=== PATIENT | female | born 1995 | race Caucasian/White ===

== ENCOUNTER 2016-06-25 11:02 | Inpatient (IN) | payer OTHER ==
[~2016-06-25] VITALS: Ht 157.5 cm; Wt 83.6 kg
[~2016-06-25 11:02] MED LIST: AMOXICILLIN875 MG PO; LORTAB 5-325 M1 EACH PO; MACROBID100 MG PO; MOTRIN800 MG PO; NAPROSYN375 MG PO; PRILOSEC20 MG PO; ROBAXIN500 MG PO; ULTRAM50 MG PO
[2016-06-25 12:21] LABS: INTERNAL CONTROL VALID? YES
[2016-06-25 12:26] LABS: AMPHETAMINE NEGATIVE (500 ng/mL); BARBITURATES NEGATIVE (200 ng/mL); BENZODIAZEPINES NEGATIVE (150 ng/mL); COCAINE NEGATIVE (150 ng/mL); INTERNAL CONTROLS VALID? YES; METHADONE NEGATIVE (200 ng/mL); METHAMPHETAMINE NEGATIVE (500 ng/mL); OPIATES (MORPHINE) NEGATIVE (100 ng/mL); OXYCODONE NEGATIVE (100 ng/mL); PHENCYCLIDINE NEGATIVE (25 ng/mL); PROPOXYPHENE NEGATIVE (300 ng/mL); THC CANNABINOIDS NEGATIVE (50 ng/mL); TRICYCLIC ANTIDEPRESSANTS NEGATIVE (300 ng/mL)
[2016-06-25] MEDS ORDERED: PROAIR HFA8.5 GM IH (14:29)
[2016-06-25 15:51] LABS: BASOPHIL COUNT 0.1 K/uL (0-0.1); EOSINOPHIL (%) 0.6 % (0-5); EOSINOPHIL COUNT 0.1 K/uL (0-0.3); HEMATOCRIT 43.1 % (36.0-46.0); IMMATURE GRANULOCYTE (%) 0.4 % (0.0-0.7); LYMPHOCYTE COUNT 2.7 K/uL (1.0-2.8); MCH 30.7 PG (29.0-34.0); MCHC 34.8 G/DL (30.0-36.0); MCV 88.1 FL (83-99); MONOCYTE COUNT 0.6 K/uL (0-0.8); NEUTROPHIL (%) 64.1 % (45-76); RBC DIS.WIDTH-SD 38.8 % (39-53); RED BLOOD COUNT 4.89 M/uL (3.80-5.20); WHITE BLOOD COUNT 9.4 K/uL (4.1-10.2)
[2016-06-25 16:02] LABS: CHLORIDE 112 mEq/L (99-109); POTASSIUM 4.3 mEq/L (3.7-5.4); SODIUM 142 mEq/L (136-147)
[2016-06-25 16:05] LABS: GLUCOSE 110 mg/dL (70-99)
[2016-06-25 16:06] LABS: ANION GAP 10 MEQ/L (2-14)
[2016-06-25 16:07] LABS: TOTAL BILIRUBIN 0.5 mg/dL (0.0-1.0)
[2016-06-25 16:08] LABS: ALKALINE PHOSPHATASE 70 IU/L (3-129); SERUM ETHYL ALCOHOL < 10 mg/dL
[2016-06-25 16:09] LABS: GFR ESTIMATE (CALCULATED) > 59 mL/min/
[2016-06-25 16:10] LABS: UREA NITROGEN (BUN) 8 mg/dL (9-23)
[2016-06-25 16:49] LABS: MEAN PLAT.VOLUME 10.2 uM^3 (9.5-12.4); PLATELET COUNT 296 K/uL (156-360)
[2016-06-25 18:05] VITALS: BP 141/67
[2016-06-25 18:11] VITALS: BP 141/67
[2016-06-26 07:59] VITALS: BP 118/55
[2016-06-26 11:41] LABS: QUANTITATIVE HCG < 4.0 MIU/ML
[2016-06-26 15:43] VITALS: BP 101/66
[2016-06-27 07:38] VITALS: BP 124/66
[2016-06-27 15:17] VITALS: BP 129/58
[2016-06-28 07:37] VITALS: BP 114/61
[2016-06-28] MEDS ORDERED: SERTRALINE HCL100 MG PO (10:51)
== END 2016-06-28 14:11 | disposition home or self-care (01) | DRG 881 ==
LOC: EME 11:02 → EDOF 15:21 → 1WEST 15:21
PROVIDERS: Emergency Medicine
DX: F32.9 Major depressive disorder, single episode, unspecified (principal); R45.851 Suicidal ideations; G47.00 Insomnia, unspecified; F41.1 Generalized anxiety disorder
CPT/HCPCS: 80053; 84702; 84703; 85025; 90839; 97150 GO; 99202; 99281; 99285; G0480; Q0169; Q0177

== ENCOUNTER 2016-07-09 18:30 | Emergency (ER) | payer OTHER ==
[~2016-07-09] VITALS: Ht 157.5 cm; Wt 82.1 kg
[~2016-07-09 18:30] MED LIST changes: +PROAIR HFA8.5 GM IH; +SERTRALINE HCL100 MG PO
[2016-07-09 21:57] VITALS: BP 121/83
== END 2016-07-09 21:58 | disposition home or self-care (01) ==
LOC: EME → EDBD 18:30 → EME 18:30
DX: R55 Syncope and collapse (principal); S09.90XA Unspecified injury of head, initial encounter; S06.0X0A Concussion without loss of consciousness, initial encounter; W19.XXXA Unspecified fall, initial encounter; J45.909 Unspecified asthma, uncomplicated
CPT/HCPCS: 70450; 93005; 99281; 99285; J7030

== ENCOUNTER 2016-08-31 07:50 | Emergency (ER) | payer OTHER ==
[~2016-08-31] VITALS: Ht 157.5 cm; Wt 81.5 kg
[2016-08-31 08:21] LABS: HEMATOCRIT 42.5 % (36.0-46.0); MCH 30.5 PG (29.0-34.0); MCHC 34.6 G/DL (30.0-36.0); MCV 88.2 FL (83-99); MEAN PLAT.VOLUME 10.1 uM^3 (9.5-12.4); PLATELET COUNT 385 K/uL (156-360); RBC DIS.WIDTH-CV 12.4 % (11.8-14.6); RBC DIS.WIDTH-SD 40.2 % (39-53); RED BLOOD COUNT 4.82 M/uL (3.80-5.20); WHITE BLOOD COUNT 12.2 K/uL (4.1-10.2)
[2016-08-31 08:31] LABS: CHLORIDE 110 mEq/L (99-109); POTASSIUM 3.7 mEq/L (3.7-5.4); SODIUM 143 mEq/L (136-147)
[2016-08-31 08:34] LABS: GLUCOSE 102 mg/dL (70-99)
[2016-08-31 08:35] LABS: ANION GAP 12 MEQ/L (2-14); TOTAL BILIRUBIN 0.3 mg/dL (0.0-1.0)
[2016-08-31 08:36] LABS: SERUM ETHYL ALCOHOL < 10 mg/dL
[2016-08-31 08:37] LABS: ALKALINE PHOSPHATASE 85 IU/L (3-129); GFR ESTIMATE (CALCULATED) > 59 mL/min/
[2016-08-31 08:38] LABS: UREA NITROGEN (BUN) 10 mg/dL (9-23)
[2016-08-31 09:38] LABS: ADD MIUA? YES; BILIRUBIN NEGATIVE; BLOOD NEGATIVE; COLOR YELLOW ((YELLOW)); GLUCOSE (STRIP) NEGATIVE; KETONES NEGATIVE; LEUKOCYTES MODERATE; NITRITE NEGATIVE; PROTEIN (STRIP) 100; SPECIFIC GRAVITY 1.018 (1.000-1.030); UROBILINOGEN 0.2 MG/DL (0.2-1.0)
[2016-08-31 09:52] LABS: BACTERIA RARE /HPF; EPITHELIAL CELLS 1+ /HPF; MUCUS TRACE /LPF; RED BLOOD CELLS 0-5 /HPF (0-5); UCUL ADDED? NO
[2016-08-31 10:02] LABS: AMPHETAMINE NEGATIVE (500 ng/mL); BARBITURATES NEGATIVE (200 ng/mL); BENZODIAZEPINES NEGATIVE (150 ng/mL); COCAINE NEGATIVE (150 ng/mL); INTERNAL CONTROLS VALID? YES; METHADONE NEGATIVE (200 ng/mL); METHAMPHETAMINE NEGATIVE (500 ng/mL); OPIATES (MORPHINE) NEGATIVE (100 ng/mL); OXYCODONE NEGATIVE (100 ng/mL); PHENCYCLIDINE NEGATIVE (25 ng/mL); PROPOXYPHENE NEGATIVE (300 ng/mL); THC CANNABINOIDS NEGATIVE (50 ng/mL); TRICYCLIC ANTIDEPRESSANTS NEGATIVE (300 ng/mL)
[2016-08-31 10:41] LABS: QUANTITATIVE HCG < 4.0 MIU/ML
[2016-08-31] MEDS ORDERED: ZOFRAN4 MG PO (10:42)
[2016-08-31 11:03] VITALS: BP 110/68
== END 2016-08-31 11:03 | disposition home or self-care (01) ==
LOC: EME 07:50
PROVIDERS: Nurse Practitioner Family
DX: R11.2 Nausea with vomiting, unspecified (principal); J45.909 Unspecified asthma, uncomplicated
CPT/HCPCS: 80053; 81003; 84702; 85027; 99281; 99285; G0480; J2405; J7030

== ENCOUNTER 2017-03-17 03:49 | Emergency (ER) | payer SELFPAY ==
[~2017-03-17] VITALS: Ht 157.5 cm; Wt 84.5 kg
[~2017-03-17 03:49] MED LIST changes: +ZOFRAN4 MG PO
[2017-03-17] MEDS ORDERED: ZOFRAN4 MG PO (04:56)
[2017-03-17] MEDS ORDERED: ROBITUSSIN AC,T10 ML PO (04:56)
[2017-03-17 05:25] VITALS: BP 152/91
[2017-03-17 05:59] LABS: APPEARANCE CLOUDY ((CLEAR)); COLOR YELLOW ((YELLOW)); LEUKOCYTES LARGE; NITRITE NEGATIVE
[2017-03-17 06:00] LABS: BILIRUBIN NEGATIVE; BLOOD NEGATIVE; GLUCOSE (STRIP) NEGATIVE; KETONES NEGATIVE; PROTEIN (STRIP) NEGATIVE; UROBILINOGEN 0.2 MG/DL (0.2-1.0)
[2017-03-17 06:23] LABS: BACTERIA 2+ /HPF; EPITHELIAL CELLS 2+ /HPF; HYALINE CASTS 0-5 /LPF; MUCUS 2+ /LPF; RED BLOOD CELLS 0-5 /HPF (0-5); UCUL ADDED? YES; WHITE BLOOD CELLS 20-30 /HPF (0-5)
== END 2017-03-17 05:25 | disposition home or self-care (01) ==
LOC: EME 03:49
PROVIDERS: Physician Assistant
DX: B34.9 Viral infection, unspecified (principal); J45.909 Unspecified asthma, uncomplicated; F32.9 Major depressive disorder, single episode, unspecified
CPT/HCPCS: 81003; 81025; 87086; 99281; 99284